=== PATIENT | female | born 2000 | race Caucasian/White ===

== ENCOUNTER 2023-02-24 01:05 | Emergency (ER) | payer OTHER ==
[~2023-02-24] VITALS: Ht 170.2 cm; Wt 60.0 kg
[2023-02-24 01:12] VITALS: O2SAT 99
[2023-02-24] MEDS ORDERED: ONDANSETRON HCL 4MG/2ML INJ IV ONE (01:45)
[2023-02-24] MEDS ORDERED: SODIUM CHLORIDE 0.9% 1,000 ML IV ONE (01:45)
[2023-02-24 04:00] VITALS: BP 112/68; PULSE 72; RESP 18; TEMP 98.5
== END 2023-02-24 04:19 | disposition home or self-care (01) ==
LOC: EDBD 01:49 → ER 01:49
DX: R41.82 Altered mental status, unspecified (principal); T51.0X1A Toxic effect of ethanol, accidental (unintentional), initial encounter; Y92.89 Other specified places as the place of occurrence of the external cause
CPT/HCPCS: 96361; 96374; 99283; J2405; J7030; Z7610 ×2